=== PATIENT | male | born 1950 | race African-American/Black ===

== ENCOUNTER 2019-03-10 23:07 | Emergency (ER) | payer SELFPAY ==
[~2019-03-10] VITALS: Ht 172.7 cm; Wt 90.9 kg
[2019-03-10 23:27] VITALS: BP 168/109
[2019-03-11] MEDS ORDERED: FUROSEMIDE 20 MG TABLET PO ONE (01:30)
[2019-03-11 13:21] LABS: GLUCOSE,POINT OF CARE 153 MG/DL (70-110)
== END 2019-03-11 01:38 | disposition left against medical advice (07) ==
LOC: EMS 23:17
DX: R60.0 Localized edema (principal); E11.9 Type 2 diabetes mellitus without complications; I10 Essential (primary) hypertension; F17.210 Nicotine dependence, cigarettes, uncomplicated